=== PATIENT | male | born 1980 | race Caucasian/White ===

== ENCOUNTER 2016-07-17 15:06 | Outpatient (CLI) | payer OTHER | END 2016-07-17 15:07 | disposition home or self-care (01) | DX: M19.072 Primary osteoarthritis, left ankle and foot (principal); M67.472 Ganglion, left ankle and foot; M79.672 Pain in left foot ==

== ENCOUNTER 2017-12-29 09:53 | Emergency (ER) | payer OTHER ==
[2017-12-29] MEDS ORDERED: oxyCOD/ACETAMIN 5 MG/325 MG TABLET PO STA (10:53)
--- NOTE | 2017-12-29 10:56 | ED Physician Documentation ---
History of Present Illness - Stated complaint Stated Complaint: R FOOT INJ - Chief complaint Chief Complaint: Ext Problem - Additonal information Additional information: hx from pt 37 male hit R foot against a foot stool pain swelling bruising to lateral distal foot Review of Systems Musculoskeletal: reports: Extremity pain PD PAST MEDICAL HISTORY - Past Medical History Past Medical History: Yes Cardiovascular: High cholesterol GI: GERD - Past Surgical History Past Surgical History: Yes - Present Medications Home Medications: Ambulatory Orders Medication Instructions Recorded Confirmed Methocarbamol [Robaxin] 500 mg 12/29/17 Naproxen 500 mg 12/29/17 Rabeprazole Sodium [Aciphex] 20 ng 12/29/17 - Allergies Allergies/Adverse Reactions: Allergies Allergy/AdvReac Type Severity Reaction Status Date / Time No Known Drug Allergies Allergy Verified 12/29/17 10:08 - Social History Does the pt smoke?: No Smoking Status: Never smoker Does the pt drink ETOH?: No Does the pt have substance abuse?: No - Immunizations Immunizations are current?: Yes PD ED PE NORMAL - Vitals Vital signs reviewed: Yes - Extremities Extremities: Other (R foot: no ankle pain, TTP bruisng swelling to distal lateral foot and toes 4 and 5, no lac, MSV intact) Results - Vitals Vitals: Vital Signs - 24 hr 12/29/17 10:04 Temperature 36.0 C L Heart Rate 98 Respiratory 19 Rate Blood Pressure 169/105 H O2 Saturation 97 Oxygen O2 Source Room air - Rads (name of study) foot Radiology: See rad report (non displaced 5th toe fx) PD MEDICAL DECISION MAKING - Sepsis Event Vital Signs: Vital Signs - 24 hr 12/29/17 10:04 Temperature 36.0 C L Heart Rate 98 Respiratory 19 Rate Blood Pressure 169/105 H O2 Saturation 97 Oxygen O2 Source Room air Departure - Departure Disposition: 01 Home, Self Care Clinical Impression: Toe fracture, right Qualifiers: Encounter type: initial encounter Toe: unspecified toe Fracture type: closed Fracture alignment: nondisplaced Qualified Code(s): S92.911A - Unspecified fracture of right toe(s), initial encounter for closed fracture Condition: Good Instructions: ED Crutch Walking, ED Fx Toe Closed Follow-Up: ZELDA Burger [Provider Group] Comments: You broke the 5th toe but the other foot bones are okay Recommend wearing the stiff soled shoe to prevent the toes from moving while it heals - liang taping it to the next toe will help too. Motrin and Tylenol for the pain Ice and elevation for the swelling Crutches as needed Follow up with your command for duty status And please get your blood pressure rechecked - it was high today
[2017-12-29] MEDS ORDERED: ACETAMINOPHEN 325 MG TABLET PO STA (10:59)
--- NOTE | 2017-12-29 11:24 | XRAY Report ---
Procedure Date: 12/29/2017 Accession Number: [id number] / [id number] Procedure: XR - Foot 3 View RT CPT Code: FULL RESULT: EXAM: RIGHT FOOT RADIOGRAPHY EXAM DATE: 12/29/2017 10:41 AM. CLINICAL HISTORY: Foot injury. COMPARISON: None. TECHNIQUE: 3 views. FINDINGS: Bones: Fracture within the proximal aspect of the fifth proximal phalanx without evidence of displacement although the toe is not well profiled on the lateral view due to overlapping toes. Joints: Normal. No subluxations. Soft Tissues: Fifth toe soft tissue swelling. IMPRESSION: Nondisplaced fifth toe proximal phalangeal fracture. RADIA
[2017-12-29 11:42] VITALS: BP 136/84
== END 2017-12-29 11:40 | disposition home or self-care (01) ==
LOC: ED 09:53
DX: S92.514A Nondisplaced fracture of proximal phalanx of right lesser toe(s), initial encounter for closed fracture (principal); R03.0 Elevated blood-pressure reading, without diagnosis of hypertension; W22.8XXA Striking against or struck by other objects, initial encounter
CPT/HCPCS: 73630; 99283; A9270

== ENCOUNTER 2018-05-27 13:10 | Outpatient (CLI) | payer OTHER | END 2018-05-27 13:11 | disposition home or self-care (01) | LOC: SC 13:10 | PROVIDERS: ATTEND Internal Medicine Pulmonary Disease | DX: G47.10 Hypersomnia, unspecified (principal); G47.8 Other sleep disorders; R41.89 Other symptoms and signs involving cognitive functions and awareness; R06.83 Snoring | CPT/HCPCS: 99203; 99212 ==

== ENCOUNTER 2018-07-13 20:20 | Outpatient (CLI) | payer OTHER | END 2018-07-13 20:21 | disposition home or self-care (01) | LOC: SC 20:20 | PROVIDERS: ATTEND Internal Medicine Pulmonary Disease | DX: G47.33 Obstructive sleep apnea (adult) (pediatric) (principal) | CPT/HCPCS: 95810 ==

== ENCOUNTER 2018-08-06 08:53 | Outpatient (CLI) | payer OTHER | END 2018-08-06 08:54 | disposition home or self-care (01) | LOC: SC 08:53 | PROVIDERS: ATTEND Nurse Practitioner Family | DX: G47.33 Obstructive sleep apnea (adult) (pediatric) (principal) | CPT/HCPCS: 99212; 99214 ==

== ENCOUNTER 2018-09-23 12:56 | Outpatient (CLI) | payer OTHER | END 2018-09-23 12:57 | disposition home or self-care (01) | LOC: SC 12:56 | PROVIDERS: ATTEND Nurse Practitioner Family | DX: G47.33 Obstructive sleep apnea (adult) (pediatric) (principal) | CPT/HCPCS: 99212; 99214 ==

== ENCOUNTER 2018-12-22 08:57 | Outpatient (CLI) | payer OTHER | END 2018-12-22 08:58 | disposition home or self-care (01) | LOC: SC 08:57 | PROVIDERS: ATTEND Nurse Practitioner Family | DX: G47.33 Obstructive sleep apnea (adult) (pediatric) (principal) | CPT/HCPCS: 99212; 99214 ==

== ENCOUNTER 2019-07-06 14:53 | Outpatient (CLI) | payer OTHER ==
--- NOTE | 2019-07-10 11:25 | SLEEP CARE CONSULTATION ---
Information from patient questionnaire entered by Sarah Ronquillo. I have reviewed and concur with the information entered by Sarah Ronquillo. This document represents the service I personally performed and the decisions made by me, Cammie Whittington, RN, MSN, [employer]. History of Present Illness Previous diagnosis: Moderate, Obstructive Sleep Apnea-Hypopnea Syndrome AHI: 22.1 Reason for follow up: six month Equipment type: CPAP Equipment obtained from: [employer] Mask style: Nasal pillows Mask brand: Respironics Backup mask available: Yes ( has old one as a back up ) Last cushion change: last week , changes monthly CPAP Compliance Data - Data Reviewed with Patient Average duration of nightly device use: 6.7 Compliance rate %: 97.8 (180 days) Current pressure setting (cmH2O): 4-9 Humidity settin Heated hose settin Average residual AHI: 2.7 Average large leak: 6 sec Subjective Patient concerns: reports: dry mouth, nose, throat (nose only that occurs weekly unless he uses petroleum jelly which is more effective than the Ronak Ease cream. ), other (nasal dryness will cause skin irritation if not treated. ). denies: aerophagia, mask discomfort, air blowing in eyes, mask leak noise, condensation in mask/hose, nasal congestion, epistaxis Observed to snore while using device: No Current pressure setting perceived as: comfortable On therapy, patient: reports: sleeping better, awakening more refreshed, being more awake and alert during the day, more rested overall. denies: drowsiness while driving Initial [place] Sleepiness Scale score: 8 Current [place] Sleepiness Scale score: 2 Allergies and Home Medications Home medication list reviewed: Yes (methocarbanol added for upper back but causes drowsiness and sleep is worse) Allergy and home medication list: Tizandidine replaced with methocarbanal but not as effective Still taking atorvastatin, Aciphex and naproxen as noted at last visit. Physical Exam Blood Pressure: 120/78 Cuff size: long Heart Rate: 87 O2 Saturation: 95 Height: 5 ft 10.25 in Weight: 254 lb 9.6 oz (with boots ) Body Mass Index: 36.2 BMI Classification: Obesity Class 2 Impression and Plan 1. Obstructive Sleep Apnea-Hypopnea Syndrome, moderate, with good treatment compliance and good apnea control. On CPAP therapy, the patient has better sleep quality and is more rested overall. He was instructed how to adjust the humidity on sample device with printed instructions given as reference. It appears he may have the humidity off and heated hose on per comliance graph but data shows humidity on 4 and heated hose off. Thus patient will review settings again at home and increase humidity. To reduce nasal dryness, he is advised to try the Diana saline nasal gel to see if more effective than Ronak Ease cream tried. My concern about continuing the daily vaseline is that it is supposed to break down nasal cushions more than the Ronak Ease or Diana. He can also use saline nasal spray during the day to keep nose moist especially when using wood heat to reduce nasal dryness. He can also consider changing his mask cushion more frequently to see if this is part nasal irritation. He was also advised how his muscle relaxant can increase apnea and to make sure he uses his CPAP with sleep if needs to use late in day/evening. He is aware not to combine the relaxant with alcohol due to increase in respiratory depression risks / . Patient's apnea severity and rationale for treatment to reduce apnea, improve sleep quality and reduce cardiovascular and cerebrovascular events was reviewed. I reviewed how his obesity affects his apnea risk and CPAP pressure requirements. He is advised to lose weight. * Continue CPAP pressure at 4-9 cmH2O * Adjust humidity * Implement methods to reduce nasal dryness * Contact office that the pressure is too much or too little * Attempt to lose weight * Call this office if any problems using CPAP * Return for follow up in 1 year , or sooner if concerns arise Time Spent with Patient (minutes): 30 I spent 100% of this visit face to face with the patient with greater than 50% of this was spent time counseling the patient and coordination of care.
[2019-07-10 11:26] VITALS: BP 120/78
== END 2019-07-06 14:54 | disposition home or self-care (01) ==
LOC: SC 14:53
PROVIDERS: ATTEND Nurse Practitioner Family
DX: G47.33 Obstructive sleep apnea (adult) (pediatric) (principal); E66.9 Obesity, unspecified; Z68.36 Body mass index [BMI] 36.0-36.9, adult
CPT/HCPCS: 99212; 99214

== ENCOUNTER 2020-07-29 16:18 | Outpatient (CLI) | payer OTHER ==
--- NOTE | 2020-07-29 16:49 | SLEEP CARE CONSULTATION ---
Information from patient questionnaire entered by Edmund Walters. I have reviewed and concur with the information entered by dEmund Walters. This document represents the service I personally performed and the decisions made by , Xuan Baires ARNP. History of Present Illness Service Date and Time: 07/29/2020 1618 Previous diagnosis: Moderate, Obstructive Sleep Apnea-Hypopnea Syndrome AHI: 22.1 Reason for follow up: annual (Last seen 07/2019) Equipment type: CPAP Equipment obtained from: [employer] (getting supplies as needed) Mask style: Nasal pillows Mask brand: Respironics Backup mask available: Yes (old mask) Last cushion change: 1-2 weeks ago Year and Where: 2018 [facility] Type of Sleep Study: Polysomnography HPI additional information: MARIA LUZ CARVAJAL was diagnosed to have moderate, AHI 22.1, obstructive sleep apnea- hypopnea syndrome and returned today [with spouse ][with partner ]for [CPAP][BIPAP] therapy [annual] follow-up. CPAP Compliance Data - Data Reviewed with Patient Average duration of nightly device use: 6 h 58 min Compliance rate %: 100 Current pressure setting (cmH2O): 4-9 Humidity settin Heated hose settin Average residual AHI: 3.0 Average large leak: 10 sec Subjective Patient concerns: reports: dry mouth, nose, throat (nose). denies: aerophagia, mask discomfort, air blowing in eyes, mask leak noise, condensation in mask/hose, nasal congestion, epistaxis, other Observed to snore while using device: No Current pressure setting perceived as: comfortable On therapy, patient: reports: sleeping better, awakening more refreshed, being more awake and alert during the day, more rested overall. denies: drowsiness while driving Initial [place] Sleepiness Scale score: 8 (in 2018) Current [place]man Sleepiness Scale score: 1 Allergies and Home Medications Drug allergies reviewed: Yes (NKDA) Home medication list reviewed: Yes (no changes) Review of Systems Review of systems same as previous: Yes (no changes) Physical Exam Heart Rate: 71 O2 Saturation: 97 Height: 5 ft 10.25 in Weight: 250 lb Body Mass Index: 35.6 BMI Classification: Obese Impression and Plan 1. Obstructive Sleep Apnea-Hypopnea Syndrome, moderate, with excellent treatment compliance and good apnea control. On CPAP therapy, the patient has better sleep quality and is more rested overall. He gets some nasal dryness from wearing the nasal pillows but he puts a little petroleum jelly on it and this relieves this. He has tried the Ronak Ease nasal cream but does not feel this helps as much. Nasal dryness can be reduced with increasing the CPAP humidity as shown on sample device and the heated hose can be increased if condensation. Patient's apnea severity and rationale for treatment to reduce apnea, improve sleep quality and reduce cardiovascular and cerebrovascular events was reviewed. I also reviewed the benefit of consistent device use of CPAP for gastric reflux. * Continue auto CPAP pressure at 4-9 cmH2O * Notify me if snoring with mask or feeling that the pressure is too much or too little * Attempt to lose weight * Call this office if any problems using CPAP * Return for follow up in 1 year, or sooner if concerns arise Counseling Topics: Spare mask, Weight loss health impact Visit Type: In Office Time Spent with Patient (minutes): 13 Provider Statement: I spent 100% of the Face to Face Visit with the patient with greater than 50% spent counseling the patient and coordination of care.
== END 2020-07-29 16:19 | disposition home or self-care (01) ==
LOC: SC 16:18
PROVIDERS: ATTEND Nurse Practitioner Family
DX: G47.33 Obstructive sleep apnea (adult) (pediatric) (principal); E66.9 Obesity, unspecified; Z68.35 Body mass index [BMI] 35.0-35.9, adult
CPT/HCPCS: 99212